=== PATIENT | male | born 1955 | race Caucasian/White ===

== ENCOUNTER 2024-08-11 17:17 | Outpatient (CLI) | payer MEDICARE, SELFPAY ==
--- OUTSIDE RECORDS SUMMARY | 2024-08-11 17:32 | XMS_ITS | Continuity of Care Document ---
Author Organization [facility] Address [address] [place] [address] [place] [address] Phone Care Team Providers Care Vp Revenue Cycle Name Role Phone Ju Monreal Unavailable Unavailable Procedures Procedure Date Visual Field Examination(s) Office/outpatient Visit, Est Office/outpatient Visit, Est Eye Exam Established Pt Optic Nerve Topography Optic Nerve Topography Eye Exam & Treatment Refraction Eye Exam & Treatment Refraction Advance Directives Directive Yes / No Effective Date File Name No Information Encounters Encounter Description Practice Location Reason(s) For Visit Diagnoses Date Provider Providers Copied on Encounter [facility], [address] [place], [place] [address], [place], [place], [id number], tel:[phone] [facility] No Information [phone] 0 Jocelin Vázquez [facility] [address], [place], [address], [place]. tel:[phone] Referring Provider: Kath[facility] Mcwilliams [facility] [address], [place], [address]. tel:[phone] Office/outpat ient Visit, Est [facility], [address] [place] [address] [address], [place], [place], [id number], tel:[phone] [facility] No Information 0-201 0 Jocelin Marshall [address] [facility] [address], [place], [place], [facility], [place]. tel:[phone] Office/outpat ient Visit, Est [facility], [address] [place] [address] [address], [place], [place], [id number], [place] [phone] [facility] No Information 0 Jocelin Marshall [address] [facility] , [address], [place], [place], [facility], . tel:[phone] [facility], [address] [place] [address] [address], [place], [place], [id number], [place] [phone] [facility] [place] No Information 0 9 Jocelin Marshall [address] [facility] , [address], [place], [place], [facility], . tel:[phone] [facility], [address] [place] [address] [address], [place], [place], [id number], [place] tel:[phone] [facility] No Information 9 Jocelin Marshall [address] [facility] , [address], [place], [place], [facility], . tel:[phone] Referring Provider: [facility] [address], [place], [place], [facility]. tel:[phone] [facility], [address] [place] [address] [address], [place], [place], [id number], [place] tel:[phone] SEC [facility] No Information 1 8 Jocelin Marshall [address] [facility] , [address], [place], [place], [facility], [place]. tel:[phone] [facility], [address] [place] [address] [address], [place], [place], [address], [place] tel:[phone] [facility] No Information [address] Travis. [address], [address], [place], [place], [address], [place]. tel:[phone] Family History Family Member Type Diagnosis Age At Onset No Information Payers Payer name Insurance type Covered constitution party ID Authoriza tion(s) No Information Social History Type Description Quantity Date Captured Comments Sex Male Smoking Status No Information Chief Complaint And Reason For Visit No Information Reason For Referral Reason For Referral No Information History Of Present Illness Encounter Date Complaint History Of Prese nt Illness No Information Functional Status Date Functional Assessmen t No Information Instructions Date Instruction Additional Infor mation No Information Assessments Type Assessment Date No Information Patient Care Teams Name Effective Dates (start - stop) Status Members No Information
--- OUTSIDE RECORDS SUMMARY | 2024-08-11 17:32 | XMS_ITS | Data Portability ---
Author Organization [employer], Main Office Address [address] [place] [address] Assessment No assessment recorded. Plan of Treatment Reminders Order Date Submit Date Provider Last Modified By Organization Details Last Modified Time Details Appointments None recorded. Lab HbA1c (hemoglobi n A1c), blood 2024 025 [email or web address] Yag[facility]art [facility], [address], [address], [place], [address], 5 09:27:58 PSA, serum or plasma [email or web address] [employer] [facility], [address], [place], [address], 5 09:27:58 urinalysis , complete [email or web address] [employer] [facility], [address], [place], [address], 5 09:27:58 CBC w/ auto diff [email or web address] [employer] [facility], [address], [place], [address], 5 09:27:58 lipid panel, serum [address] [employer] [facility], [address], [place], [address], 5 18:10:44 CMP, serum or plasma 2024 025 [email or web address] [facility]ag[facility]art [facility], [address], [facility], [place], [address], 5 09:27:58 magnesium, serum or plasma 2023 024 [email or web address] Not available 4 08:36:56 CMP, serum or plasma 2023 024 KAYCE Not available 4 15:22:30 ferritin, serum or plasma 2023 024 [email or web address] Not available 4 08:36:56 glycohemog lobin, total, blood 2023 024 KAYCE Not available 4 23:39:21 CMP, serum or plasma 2023 024 KAYCE Not available 4 20:44:30 PSA, serum or plasma 2023 024 KAYCE Not available 4 23:42:47 CBC w/ auto diff 2023 024 KAYCE Not available 4 20:21:51 lipid panel, serum 2023 024 KAYCE Not available 4 20:44:35 Referral None recorded. Procedures None recorded. Surgeries None recorded. Imaging XR, knee, 3 view 2024 025 [email or web address] [facility], [address], [place], [address], 5 14:08:21 Medication Orders None recorded. Patient TargetsNo targets recorded. Patient Instructions Encounter Date Encounter Id Patient Instructions Last Modified By Organization Details Last Modified Time 07/17/2023 [id number] dementia rating scale-2* Not available 07/17/2023 14:48:39 alcohol misuse* Not available 07/17/2023 14:48:39 depression screening* Not available 07/17/2023 14:48:39 multi-dimensiona l health assessment questionnaire* Not available 07/17/2023 14:48:39 Personalized [facility] Plan and Screening Recommendations Advance Directives - Do you have one? No Advance Directives - Do we have your advance directive on file in your health record? Primary Prevention/Interven tion (prevents or decreases the chance of common diseases from occurring) Smoking Risk: Non Smoker Alcohol Misuse Screening: Negative Weight: Appropriate Physical activity: Need more exercise/physical activity Nutrition: Average Refer to attached handout Heart-Healthy Diet: After Your Visit Refer to attached handout DASH Diet: After Your Visit Recommend consultation with a bicycle messenger Eat heart healthy diet Fall Risk (screened today): Low Vaccines Pneumococcal: No further needed Influenza: Your next one in the fall of this year Chronic Disease Risks Stroke: Low Risk I have no recommendations Heart Attack: Low risk I have no recommendations Clogging of the Arteries: Low risk I have no recommendations Diabetes: Low Risk I have no recommendations Secondary Prevention/Interven tion (detects treatable diseases before they may cause symptoms, disability, or ) Prostate Cancer Screening: Your next PSA in: No PSA screening necessary recommend ed Colon Cancer Screening: Colonoscopy In: Ordered Recomme nded Recommended today, but you have declined No screening necessary due 2025 Date Screening Last Performed: ___2015___ Eye Disease Screening: Ordered Recommended today Recommended today, but you have declined No Eye exam necessary Your next exam in: goes yearly Dementia Risk: Low I have no recommendations Depression Screening: Negative Recommend additional evaluation and/or treatment as noted above Recommend follow appointment to further evaluate Recommend Behavioral Health referral Active diagnosis, Continue current treatment plan I have no recommendations [email or web address] Not available 07/17/2023 15:02:40 07/31/2024 [id number] Will notify ирина ent of xray results. Continue daily exercises as discussed. [email or web address] Not available 07/31/2024 12:27:27 Reason for Referral None Reported. Results Created Date Observation Date Name Description Value Unit Range Abnormal Flag Note LastModifiedBy Organization Detail LastModifiedTime 07/17/19 24 07/17/2023 CBC/C OMPLE TE BLD COUNT W/DIF F white blood cells 8.2 x10'3 /uL 4.2-10 .8 Not Available [facility] (Lab) [address] [place], [address], 07/17/2023 20:21:51 07/17/19 24 07/17/2023 CBC/C OMPLE TE BLD COUNT W/DIF F red blood cells 5.42 x10'6 /uL 4.10-5 .80 Not Available [facility] (Lab) [address] [place], [address], 07/17/2023 20:21:51 07/17/19 24 07/17/2023 CBC/C OMPLE TE BLD COUNT W/DIF F hemoglobin 15.9 g/dL 13.2-1 7.0 Not Available [facility] (Lab) [address] [place], [address], 07/17/2023 20:21:51 07/17/19 24 07/17/2023 CBC/C OMPLE TE BLD COUNT W/DIF F hematocrit 47.9 % 39.3-5 0.0 Not Available [facility] (Lab) [address] [place], [address], 07/17/2023 20:21:51 07/17/19 24 07/17/2023 CBC/C OMPLE TE BLD COUNT W/DIF F mean red cell volume 88.4 fL 80.0-9 7.0 Not Available [facility] (Lab) [address] [place], [address], 07/17/2023 20:21:51 07/17/19 24 07/17/2023 CBC/C OMPLE TE BLD COUNT W/DIF F mean red cell hemoglobin 29.3 pg 27.0-3 3.0 Not Available [facility] (Lab) [address] [place], [address], 07/17/2023 20:21:51 07/17/19 24 07/17/2023 CBC/C OMPLE TE BLD COUNT W/DIF F mean RBC HGB concentratio n 33.2 g/dL 31.0-3 6.0 Not Available [facility] (Lab) [address] [place], [address], 07/17/2023 20:21:51 07/17/19 24 07/17/2023 CBC/C OMPLE TE BLD COUNT W/DIF F red cell distribution width 13.6 % 11.8-1 5.5 Not Available [facility] (Lab) [address] [place], [address], 07/17/2023 20:21:51 07/17/19 24 07/17/2023 CBC/C OMPLE TE BLD COUNT W/DIF F platelets 343 x10'3 /uL 150-40 0 Not Available [facility] (Lab) [address] [place], [address], 07/17/2023 20:21:51 07/17/19 24 07/17/2023 CBC/C OMPLE TE BLD COUNT W/DIF F mean platelet volume 9.2 fL 9.0-12 .4 Not Available [facility] (Lab) [address] [place], [address], 07/17/2023 20:21:51 07/17/19 24 07/17/2023 CBC/C OMPLE TE BLD COUNT W/DIF F neutrophils 56.4 % 39.0-7 2.0 Not Available [facility] (Lab) [address] [place], [address], 07/17/2023 20:21:51 07/17/19 24 07/17/2023 CBC/C OMPLE TE BLD COUNT W/DIF F lymphocytes 25.6 % 16.0-4 7.0 Not Available [facility] (Lab) [address] [place], [address], 07/17/2023 20:21:51 07/17/19 24 07/17/2023 CBC/C OMPLE TE BLD COUNT W/DIF F monocytes 12.0 % 5.0-12 .0 Not Available [facility] (Lab) [address] [place], [address], 07/17/2023 20:21:51 07/17/19 24 07/17/2023 CBC/C OMPLE TE BLD COUNT W/DIF F eosinophils 4.3 % 1.0-7. 0 Not Available [facility] (Lab) [address] [place], [address], 07/17/2023 20:21:51 07/17/19 24 07/17/2023 CBC/C OMPLE TE BLD COUNT W/DIF F basophils 1.2 % 0.0-2. 0 Not Available [facility] (Lab) [address] [place], [address], 07/17/2023 20:21:51 07/17/19 24 07/17/2023 CBC/C OMPLE TE BLD COUNT W/DIF F immature granulocytes 0.5 % 0.00-0 .50 Not Available [facility] (Lab) [address] [place], [address], 07/17/2023 20:21:51 07/17/19 24 07/17/2023 CBC/C OMPLE TE BLD COUNT W/DIF F neutrophils, absolute count 4.63 x10'3 /uL 1.5-8. 0 Not Available [facility] (Lab) [address] [place], [address], 07/17/2023 20:21:51 07/17/19 24 07/17/2023 CBC/C OMPLE TE BLD COUNT W/DIF F lymphocytes, absolute count 2.10 x10'3 /uL 1.07-3 .43 Not Available [facility] (Lab) [address] [place], [address], 07/17/2023 20:21:51 07/17/19 24 07/17/2023 CBC/C OMPLE TE BLD COUNT W/DIF F monocytes, absolute count 0.98 x10'3 /uL 0.29-0 .99 Not Available [facility] (Lab) [address] [place], [address], 07/17/2023 20:21:51 07/17/19 24 07/17/2023 CBC/C OMPLE TE BLD COUNT W/DIF F eosinophils, absolute count 0.35 x10'3 /uL 0.02-0 .53 Not Available [facility] (Lab) [address] [place], [address], 07/17/2023 20:21:51 07/17/19 24 07/17/2023 CBC/C OMPLE TE BLD COUNT W/DIF F basophils, absolute count 0.10 x10'3 /uL 0.01-0 .08 high Not Available [facility] (Lab) [address] [place], [address], 07/17/2023 20:21:51 07/17/19 24 07/17/2023 CBC/C OMPLE TE BLD COUNT W/DIF F immature granulocytes ,absolute 0.04 x10'3 /uL 0.00-0 .05 Not Available [facility] (Lab) [address] [place], [address], 07/17/2023 20:21:51 07/17/19 24 07/17/2023 CBC/C OMPLE TE BLD COUNT W/DIF F nucleated red blood cells 0.0 % -0 Not Available [facility] (Lab) [address] [place], [address], 07/17/2023 20:21:51 07/17/19 24 07/17/2023 CBC/C OMPLE TE BLD COUNT W/DIF F NRBC# 0.00 x10'3 /uL Not Available [facility] (Lab) [address] [place], [address], 07/17/2023 20:21:51 07/17/19 24 07/17/2023 COMPR EHENS BEN METAB OLIC PANEL sodium 137 mmol/ L 137-14 5 Not Available [facility] (Lab) [address] [place], [address], 07/17/2023 20:44:30 07/17/19 24 07/17/2023 COMPR EHENS BEN METAB OLIC PANEL potassium 4.7 mmol/ L 3.5-5. 1 Not Available [facility] (Lab) [address] [place], [address], 07/17/2023 20:44:30 07/17/19 24 07/17/2023 COMPR EHENS BEN METAB OLIC PANEL chloride 104 mmol/ L 98-107 Not Available [facility] (Lab) [address] [place], [address], 07/17/2023 20:44:30 07/17/19 24 07/17/2023 COMPR EHENS BEN METAB OLIC PANEL carbon dioxide 22 mmol/ L 22-30 Not Available [facility] (Lab) [address] [place], [address], 07/17/2023 20:44:30 07/17/19 24 07/17/2023 COMPR EHENS BEN METAB OLIC PANEL anion gap 15.7 mmol/ L 14-22 Not Available [facility] (Lab) [address] [place], [address], 07/17/2023 20:44:30 07/17/19 24 07/17/2023 COMPR EHENS BEN METAB OLIC PANEL glucose 98 mg/dL 70-99 Not Available [facility] (Lab) [address] [place], [address], 07/17/2023 20:44:30 07/17/19 24 07/17/2023 COMPR EHENS BEN METAB OLIC PANEL BUN 21 mg/dL 8-19 high Not Available [facility] (Lab) [address] [place], [address], 07/17/2023 20:44:30 07/17/19 24 07/17/2023 COMPR EHENS BEN METAB OLIC PANEL creatinine 0.84 mg/dL 0.66-1 .25 Not Available [facility] (Lab) [address] [place], [address], 07/17/2023 20:44:30 07/17/19 24 07/17/2023 COMPR EHENS BEN METAB OLIC PANEL GFR >60 Refer ence Range : [place] ge GFR Healt hy Adult : >60 mL/mi n/1.7 3 m2 Chron ic Kidne y Disea se: 15-60 mL/mi n/1.7 3 m2 Kidne y Failu re: <15/m L/min /1.73 m2 www.n iddk. nih.g ov The MDRD study equat ion has not been valid ated in child gus <18 years of age; pregn ant women ; the elder ly >85 years of age; or in some racia l or ethni c subgr oups, such as Hisga nics. Outsi de the valid ated natalia eters , estim ated GFR is less accur ate, requi ring clini ember judgm ent on a case- by-ca se basis . Clini ember inter preta tion for other races and ages must be made by the clini damon. The MDRD study equat ion has not been valid ated for the evalu ation of serum creat inine relat ed to nutri reuben l statu s or medic ation usage . For perso ns <18 years of age, a pedia tric GFR calcu lator is avail able on the [facility] websi te: https ://freddie w.kid aaron.o rg/pr ofess ional s/kdo qi/gf r_cal culat or Not Available [facility] (Lab) [address] [place], [address], 07/17/2023 20:44:30 07/17/19 24 07/17/2023 COMPR EHENS BEN METAB OLIC PANEL alkaline phosphatase 66 U/L 38-126 Not Available [facility] (Lab) [address] [place], [address], 07/17/2023 20:44:30 07/17/19 24 07/17/2023 COMPR EHENS BEN METAB OLIC PANEL alanine aminotransfe rase 33 U/L 0-50 Not Available [facility] (Lab) [address] [place], [address], 07/17/2023 20:44:30 07/17/19 24 07/17/2023 COMPR EHENS BEN METAB OLIC PANEL aspartate aminotransfe rase 65 U/L 15-46 high Not Available [facility] (Lab) [address] [place], [address], 07/17/2023 20:44:30 07/17/19 24 07/17/2023 COMPR EHENS BEN METAB OLIC PANEL bilirubin, total 0.70 mg/dL 0.20-1 .30 Not Available [facility] (Lab) [address] [place], [address], 07/17/2023 20:44:30 07/17/19 24 07/17/2023 COMPR EHENS BEN METAB OLIC PANEL calcium 9.5 mg/dL 8.4-10 .2 Not Available [facility] (Lab) [address] [place], [address], 07/17/2023 20:44:30 07/17/19 24 07/17/2023 COMPR EHENS BEN METAB OLIC PANEL total protein 7.0 g/dL 6.3-8. 2 Not Available [facility] (Lab) [address] [place], [address], 07/17/2023 20:44:30 07/17/19 24 07/17/2023 COMPR EHENS BEN METAB OLIC PANEL albumin 4.5 g/dL 3.0-4. 4 high Not Available [facility] (Lab) [address] [place], [address], 07/17/2023 20:44:30 07/17/19 24 07/17/2023 COMPR EHENS BEN METAB OLIC PANEL globulin 2.5 g/dL 2.6-4. 2 low Not Available [facility] (Lab) [address] [place], [address], 07/17/2023 20:44:30 07/17/19 24 07/17/2023 COMPR EHENS BEN METAB OLIC PANEL A/G ratio 1.8 ratio 1.0-2. 0 Not Available [facility] (Lab) [address] [place], [address], 07/17/2023 20:44:30 07/17/19 24 07/17/2023 LIPID PANEL cholesterol 113 mg/dL 140-19 9 low NIH AL NSUS RECOM MENDA TION FOR GERHARD STERO L: ADULT CHILD LOW RISK: <200 <170 BORDE RLINE : <200- 239 ----- HIGH RISK: >240 >200 Not Available [facility] (Lab) [address] [place], [address], 07/17/2023 20:44:35 07/17/19 24 07/17/2023 LIPID PANEL triglyceride s 130 mg/dL 0-150 NIH AL NSUS REPOR T RECOM MENDA TION FOR TRIGL YCERI JERROD: ADULT CHILD LOW RISK: <150 ----- BODER LINE: 150-1 99 ----- HIGH RISK: >200 ----- Not Available [facility] (Lab) [address] [place], [address], 07/17/2023 20:44:35 07/17/19 24 07/17/2023 LIPID PANEL HDL cholesterol 42 mg/dL 40- Not Available [facility] (Lab) [address] [place], [address], 07/17/2023 20:44:35 07/17/19 24 07/17/2023 LIPID PANEL LDL cholesterol, calculated 45 mg/dL 0-130 NIH AL NSUS REPOR T RECOM MENDA TIONS FOR LDL: ADULT CHILD LOW RISK <130 <110 (OPTI MAL LDL) <100 ----- BORDE RLINE : 130-1 59 ----- HIGH RISK: >160 >130 A TRIGL YCERI DE RESUL T >400 INVAL IDATE S THE CALCU LATIO N FOR LDL FRACT IONAT ION - THE LDL RESUL T WILL NOT BE REPOR MARSHALL. Not Available [facility] (Lab) [address] [place], [address], 07/17/2023 20:44:35 07/17/19 24 07/17/2023 PSA SCREE N PSA medicare screen 1.62 NG/mL 0.00-4 .00 Not Available [facility] (Lab) [address] [place], [address], 07/17/2023 21:11:11 07/17/19 24 07/17/2023 HEMOG LOBIN A1C HA1C 6.1 % 4.0-6. 0 high Diabe brian Scree imelda Crite margie: <5.7% Consi stent with absen ce of diabe brian 5.7-6 .4% Consi stent with incre ased risk for diabe brian (pred iabet es) >OR=6 .5% Consi stent with diabe brian REFER ENCE: Diabe brian Care 2016, 39(Pryor ppl.1 ):s13 -s22 Not Available [facility] (Lab) [address] [place], [address], 07/17/2023 23:39:21 12/04/19 24 12/04/2023 SARS- COV-2 RNA(C OVID1 9),RT -PCR sars-cov-2 RNA(covid19) ,RT-PCR NEGATI VE This test has been autho rized by the FDA under an Emerg ency Use Autho rizat ion (EUA) for use by autho rized labor atori es. Negat ben resul ts do not precl ude SARS- CoV-2 and shoul d not be used as the sole basis for treat ment or other patie nt manag ement decis ions. Test resul ts shoul d be corre lated with the clini ember yonathano ry, minor martinezcal data, and other data avail able to the clini damon evalu ating the patie nt. Nikolai woodard the Fact Sheet s for healt h care provi ders and patie nts at the [facility] brian: https ://ww w.fda .gov/ media /1363 12/do wnloa d https ://ww w.fda .gov/ media /1363 13/do wnloa d Metho dolog y: Real- Time RT-PC R Not Available [facility] ([facility]) [address] [place], [address], 12/04/2023 15:11:08 Result Notes None recorded. Problems Name Problem SNOMED Code Status Onset Date Resolution Date Notes Provider Name and Address Organization Details Recorded Time Pain in left thumb 51867870396 86014 Completed 202101/17/2022 Not Available [facility] 3 02:52:44 Liver function tests outside referenc e range 265198047 Active 2020 Not Available [facility] 3 22:03:26 Vertigo 726208627 Completed 202101/17/2022 Not Available [facility] 3 02:52:44 Cough 02764824 Completed 202101/17/2022 Not Available [facility] 3 02:52:44 Rhinitis 23060409 Active 2021 Not Available [facility] 3 22:03:26 Hypergly cemia 39781042 Active 2020 watch diet, lose weight Not Available [facility] 3 22:03:26 Erectile dysfunct ion 716809982 Active 2020 no more meds needed Not Available [facility] 3 22:03:26 Eruption 765782838 Active 2022 Not Available [facility] 3 22:03:26 Upper respirat ory infectio n 49215623 Active 2023 Michelle Todd LPN null, [facility] 4 12:48:30 COVID-19 714569333 Active 2023 Michelle Todd LPN null, [facility] 4 16:27:37 Lesion of skin of face 36891517550 6 Active 2023 Camila Wylie NP [address], [address], [place], [address] , [facility] 4 16:05:51 Sinusiti s 38443690 Active 2023 Jennifer Burns MA null, [facility] 4 13:01:53 Cramp in lower limb 184369790 Active 2023 Johnathan Short MD [address], [address], [place], [address] , [facility] 4 14:44:57 Diabetes mellitus 84763068 Active 2024 Jennifer Burns MA null, [facility] 5 12:42:21 Pain of knee region 3382051452 Active 2024 EWELINA Barrera [address], [address], [place], [address] , [facility] 5 12:04:48 Notes:Some problems listed i n Documents: #[id number], #[id number] could not be added to this patient's chart. Please review these documents and add these problems to the patient's chart manually as needed. Problem Notes None recorded. Procedures Surgical History Date Name Laterality Status Provider Name and Address Organization Details Recorded Time Medicare Wellness CPT Code, subsequent completed Alesha Smith RN [facility] 07/17/2023 14:42:24 Imaging Results None recorded. Procedure Notes None recorded. Medical Equipment None Reported. Allergies Allergen ID Allergen Name Allergen Category Reaction Reaction Severity Criticality Documentation Date Start Date Code Code System Note Provider Name and Address Organization Details Recorded Time 5087 Substance with sulfonami de structure and antibacte rial mechanism of action (substanc e) medicatio n rash mild Not available 05/02/2022 00390 8003 SNOMED Not Available [facility] 3 03:06:26 5088 Product containin g penicilli n (product) medicatio n other Not available Not available 05/02/2022 16197 8001 SNOMED skin blist ers Not Available [facility] 3 03:06:26 5089 erythromy millie medicatio n Not available Not available Not available 05/02/2022 4053 RxNorm unsur e of react ion Not Available [facility] 3 03:06:26 5090 cephalexi n medicatio n rash Not available Not available 05/02/2022 2231 RxNorm Not Available [facility] 3 03:06:26 Medications Name Sig Start Date Stop Date Status Note LastModified by Organization Details LastModified Time latanoprost 0.005 % eye drops INSTILL 1 DROP INTO BOTH EYES AT BEDTIME DIRECTED 01/14 completed Not Available Not Available Not Available triamcinolo ne acetonide 0.5 % topical cream apply to affected area up to twice daily 2024 active Not Available Not Available Not Avai lable Viagra 50 mg tablet Take 1 tablet every day by oral route as needed. 08/19 completed Not Available Not Available Not Available meclizine 25 mg tablet Take 1 tablet 3 times a day by oral route as needed. 07/16 completed Not Available Not Available Not Available Analpram-HC 1 %-1 % rectal cream apply bid prn 01/29 completed Not Available Not Available Not Available omeprazole 20 mg capsule,del ayed release Take 1 capsule every day by oral route. active Not Available Not Available No t Available hydrocortis one 2.5 % topical cream APPLY A THIN LAYER TO THE AFFECTED AREA(S) BY TOPICAL ROUTE 2 TIMES PER DAY active Not Available Not Available No t Available methylpredn isolone 4 mg tablets in a dose pack take as directed on the package 09/12 completed Not Available Not Available Not Available naproxen 500 mg tablet Take 1 tablet twice a day by oral route. active Not Available Not Available No t Available tadalafil 20 mg tablet TAKE 1 TABLET BY MOUTH ONCE DAILY NEEDED 2022 active Not Available Not Available Not Avai lable Cialis 10 mg tablet Take 1 tablet every day by oral route as needed. 08/19 completed Not Available Not Available Not Available Fish Oil 2014 active Not Available Not Available Not Avai lable Acidophilus 2014 active Not Available Not Available Not Avai lable multivitami n 10/07 completed Not Available Not Available Not Available Daily Multi-Vitam ins/Iron 01/18 completed Not Available Not Available Not Available peg 3350 240 gram-electr olytes 22.72 gram-6.72 g-5.84 g powdr for soln TAKE DIRECTED BEFORE TEST 01/29 completed Not Available Not Available Not Available Glucos Chond Cplx Advanced 08/19 completed Not Available Not Available Not Available terbinafine 250 mg oral tablet-hydr oxypropyl chitosan 1 % topical kit 07/16 completed Not Available Not Available Not Available glucosamine 750 mg-chondroi tin 600 mg chewable tablet Take 1 tablet every day by oral route. 01/18 completed Not Available Not Available Not Available Probiotic Pearls QD 2017 active Not Available Not Available Not Avai lable Shingrix (PF) 50 mcg/0.5 mL intramuscul ar suspension, kit 08/10 completed Not Available Not Available Not Available Fluzone Quad (PF) 60 mcg (15 mcg x 4)/0.5 mL IM syringe active Not Available Not Available N ot Available Neuriva Original qd 07/16 completed Not Available Not Available Not Available Paxlovid 300 mg (150 mg x 2)-100 mg tablets in a dose pack UUD on the package 07/16 completed Not Available Not Available Not Available Vitals Date Recorded Body height Body mass index (BMI) Body weight Body temperature Heart rate Oxygen saturation Oxygen saturation in Arterial blood by Pulse oximetry Systolic blood pressure Diastolic blood pressure Provider Name and Address Organization Details Last Updated DateTime 5 172.72 cm 28.3 kg/m2 10308.1 8 g 97 [degF] 90 /min 96 % 96 % 144 mm[Hg] 90 mm[Hg] Michelle orellana RobinJaspal [facility] 5 14:00:18 Date Recorded Body height Body mass index (BMI) Body weight Body temperature Heart rate Oxygen saturation Oxygen saturation in Arterial blood by Pulse oximetry Systolic blood pressure Diastolic blood pressure Provider Name and Address Organization Details Last Updated DateTime 4 172.72 cm 26.3 kg/m2 94826.4 8 g 98.4 [degF] 47 /min 97 % 97 % 134 mm[Hg] 80 mm[Hg] Deana Goyal [facility] 4 14:27:37 Date Recorded Body height Body mass index (BMI) Body weight Body temperature Oxygen saturation Oxygen saturation in Arterial blood by Pulse oximetry Heart rate Systolic blood pressure Diastolic blood pressure Provider Name and Address Organization Details Last Updated DateTime 5 172.72 cm 27.4 kg/m2 64117.6 3 g 97.4 [degF] 96 % 96 % 83 /min 152 mm[Hg] 86 mm[Hg] Shweta kraus [facility] 5 11:56:03 Date Recorded Body height Body mass index (BMI) Body weight Heart rate Oxygen saturation Oxygen saturation in Arterial blood by Pulse oximetry Body temperature Systolic blood pressure Diastolic blood pressure Provider Name and Address Organization Details Last Updated DateTime 4 172.72 cm 27.2 kg/m2 75047.0 3 g 66 /min 97 % 97 % 99.4 [degF] 130 mm[Hg] 76 mm[Hg] Lucy Eladio Towi 4 15:42:21 Date Recorded Body height Body mass index (BMI) Body weight Body temperature Heart rate Oxygen saturation Oxygen saturation in Arterial blood by Pulse oximetry Systolic blood pressure Diastolic blood pressure Provider Name and Address Organization Details Last Updated DateTime 4 172.72 cm 28.4 kg/m2 26212.7 7 g 97.5 [degF] 64 /min 97 % 97 % 130 mm[Hg] 72 mm[Hg] Michelle orellana Robin Towi 4 14:29:45 Social History Question Answer Notes LastModified by Organization Details LastModified Time Tobacco Smoking Status Never Smoker Not Available [facility] 05/02/2022 02:41:34 Do You Have An Advance Directive? No Papers Given Previously [email or web address] Information not available 07/17/2023 Are You Blind Or Do You Have Difficulty Seeing? No Glasses MIGRATION.0301 [id number] Information not available 05/02/2022 What Is Your Level Of Caffeine Consumption? Moderate MIGRATION.0301 [id number] Information not available 05/02/2022 How Much Tobacco Do You Chew? None MIGRATION.0301 [id number] Information not available 05/02/2022 In The 14 Days Before Symptom Onset, Have You Had Close Contact With A Laboratory-conf irmed COVID-19 While That Case Was Ill? No MIGRATION.0301 [id number] Information not available 05/02/2022 In The 14 Days Before Symptom Onset, Have You Had Close Contact With A Person Who Is Under Investigation For COVID-19 While That Person Was Ill? No MIGRATION.0301 [id number] Information not available 05/02/2022 Are You Deaf Or Do You Have Serious Difficulty Hearing? No MIGRATION.0301 [id number] Information not available 05/02/2022 What Type Of Diet Are You Following? REGULAR MIGRATION.0301 095570 Information not available 05/02/2022 Which Illicit Or Recreational Drugs Have You Used? None MIGRATION.0301 [id number] Information not available 05/02/2022 Have There Been Any Changes To Your Family Or Social Situation? No MIGRATION.0301 [id number] Information not available 05/02/2022 What Is The Fluoride Status Of Your Home? Fluoridated MIGRATION.0301 793353 Information not available 05/02/2022 Do You Use Insect Repellent Routinely? No [email or web address] Information not available 07/17/2023 Where Do You Live? SingleLevelHouse MIGRATION.0301 586646 Information not available 05/02/2022 Are You Able To Care For Yourself? Yes [email or web address] Information not available 07/17/2023 Are You Blind Or Do Yo Have Difficulty Seeing? No [email or web address] Information not available 07/17/2023 Are You Deaf Or Do You Have Serious Difficulty Hearing? No [email or web address] Information not available 07/17/2023 Live Alone Of With Others? With Others [email or web address] Information not available 07/17/2023 What Was The Date Of Your Most Recent Tobacco Screening? 07/17/2023 Information not available 07/17/2023 Do You Have Any Pets? No [email or web address] Information not available 07/17/2023 What Is Your Relationship Status? Single MIGRATION.0301 [id number] Information not available 05/02/2022 Do You Use Your Seat Belt Or Car Seat Routinely? Yes MIGRATION.0301 [id number] Information not available 05/02/2022 Do You Have Smoke And Carbon Monoxide Detectors In Your Home? Yes MIGRATION.0301 984248 Information not available 05/02/2022 Are You Passively Exposed To Smoke? No [email or web address] Information not available 07/17/2023 Are There Any Smokers In Your House? No [email or web address] Information not available 07/17/2023 How Much Tobacco Do You Smoke? No MIGRATION.0301 911415 Information not available 05/02/2022 Do You Use Sunscreen Routinely? No MIGRATION.0301 645249 Information not available 05/02/2022 Have You Recently Traveled Abroad? No [email or web address] Information not available 07/17/2023 Do You Have Difficulty Walking Or Climbing Stairs? No MIGRATION.0301 036772 Information not available 05/02/2022 Sex: Unknown Functional Status Question Answer Note LastModified by Organizat ion Details LastModified Time What is your level of alcohol consumption? None MIGRATION.139841 2687 Information not available 05/02/2022 Do you or have you ever used smokeless tobacco? Never used smokeless tobacco MIGRATION.169121 5901 Information not available 05/02/2022 Do you have transportation difficulties? No MIGRATION.985442 9592 Information not available 05/02/2022 Are you able to walk? YESWOREST MIGRATION.315512 8452 Information not available 05/02/2022 Do you have difficulty doing errands alone? No MIGRATION.944338 4928 Information not available 05/02/2022 Are you able to care for yourself? Yes MIGRATION.545774 9051 Information not available 05/02/2022 What is your occupation? unemployed MIGRATION.119366 0867 Information not available 05/02/2022 Do you have difficulty dressing or bathing? No MIGRATION.641328 7537 Information not available 05/02/2022 Do you or have you ever used e-cigarettes or vape? Never used electronic cigarettes MIGRATION.820530 7624 Information not available 05/02/2022 What is your exercise level? Occasional [email or web address] Information not available 07/17/2023 Mental Status Question Answer Note LastModified by Organizat ion Details LastModified Time Do you feel stressed (tense, restless, nervous, or anxious, or unable to sleep at night)? [id number] MIGRATION.[id number] 26 Information not available 05/02/2022 Do you have difficulty concentrating, remembering or making decisions? No MIGRATION.81627903 26 Information not available 05/02/2022 Family History Relationship Description Onset Age of this Age Resolved Age Notes LastModified by Organization Details LastModified Time Father Arthritis MIGRATION.715 [id number] Not available 05/02/2022 02:43:20 Mother Cerebrovascu lar accident MIGRATION.905 [id number] Not available 05/02/2022 02:43:20 Mother Diabetes mellitus MIGRATION.837 [id number] Not available 05/02/2022 02:43:20 Medical History No medical history recorded. Immunizations Vaccine Type Date Status Note Provider Nam e and Address Organization Details Recorded Time Influenza, high-dose, trivalent, PF 4 completed Not Available [facility] 01/21/2023 22:03:26 SARS-COV-2 (COVID-19) vaccine, UNSPECIFIED 1 completed Not Available [facility] 01/21/2023 22:03:26 SARS-COV-2 (COVID-19) vaccine, UNSPECIFIED 1 completed Not Available [facility] 01/21/2023 22:03:26 SARS-COV-2 (COVID-19) vaccine, UNSPECIFIED 1 completed Not Available [facility] 01/21/2023 22:03:26 tetanus toxoid, unspecified formulation 6 completed Not Available [facility] 01/21/2023 22:03:26 zoster live 4 completed Not Available [facility] 01/21/2023 22:03:26 zoster, unspecified formulation 0 completed Not Available [facility] 01/21/2023 22:03:26 Influenza, split virus, quadrivalent, preservative 9 completed Not Available [facility] 01/21/2023 22:03:26 zoster recombinant 9 completed Not Available [facility] 01/21/2023 22:03:26 Influenza, high-dose, quadrivalent, PF 2 completed Not Available [facility] 01/21/2023 22:03:26 Influenza, high-dose, quadrivalent, PF 1 completed Not Available [facility] 01/21/2023 22:03:26 Influenza, high-dose, quadrivalent, PF 0 completed Not Available [facility] 01/21/2023 22:03:26 Pneumococcal conjugate PCV 13 0 completed Not Available [facility] 01/21/2023 22:03:26 Influenza, split virus, quadrivalent, PF 7 completed Not Available [facility] 01/21/2023 22:03:26 Influenza, split virus, quadrivalent, preservative 6 completed Not Available [facility] 01/21/2023 22:03:26 pneumococcal polysaccharide PPV23 6 completed Not Available [facility] 01/21/2023 22:03:26 Influenza, split virus, quadrivalent, PF 5 completed Not Available [facility] 01/21/2023 22:03:26 SARS-COV-2 (COVID-19) vaccine, UNSPECIFIED 4 completed Jennifer Burns MA null, [email or web address] 11/20/2023 11:46:03 SARS-COV-2 (COVID-19) vaccine, UNSPECIFIED 5 completed KALYANI Sanchez, [email or web address] 07/14/2024 11:43:22 Influenza, high-dose, quadrivalent, PF 3 completed Johnathan Short MD [address] [place] [address], [address], [address], [email or web address] [facility] 01/16/2023 14:47:10 Influenza, high-dose, trivalent, PF 4 completed Johnathan Short MD [address] [facility], [address], [place], [address], [facility] 01/15/2024 16:17:42 Past Encounters Encounter ID Performer Location Encounter Start Date Encounter Closed Date Diagnosis/Indication Diagnosis SNOMED-CT Code Diagnosis ICD10 Code Diagnosis Note [id number] Johnathan Short MD [facility] [address] [facility] [place] [address] 05/13/2020 00:00:00 05/13/2020 10:36:20 [id number] Johnathan Short MD [facility] Internal Med [facility] [address] [place] [address] 08/10/2020 00:00:00 08/10/2020 15:57:24 [id number] Johnathan Short MD S_[facility] Internal Med [address] [place] [address] 09/12/2020 00:00:00 09/12/2020 15:31:39 [id number] MD OLIVE Rodriguez_[facility] Internal Med [address] [facility] [place] [address] 01/16/2021 00:00:00 01/18/2021 17:30:28 [id number] MD OLIVE Rodriguez_[facility] Internal Med [address] [place] [address] 01/16/2021 00:00:00 01/18/2021 17:27:44 [id number] Johnathan Short MD [facility] [address] [place] [address] 06/13/2021 00:00:00 06/13/2021 14:49:21 [id number] MD SHALINI RodriguezS_[facility] Internal Med [address] [place] [address] 07/17/2021 00:00:00 07/17/2021 14:55:25 [id number] Johnathan Short MD S_[facility] Internal Med [address] [place] [address] 11/08/2021 00:00:00 11/08/2021 12:19:03 [id number] Johnathan Short MD S_[facility] Internal Med [address] [place] [address] 01/17/2022 00:00:00 01/17/2022 16:48:56 [id number] Johnathan Short MD S_[facility] Internal Med [address] [place] [address] 07/18/2022 14:42:22 07/18/2022 15:38:18 Erectile dysfunction 889372317 F52.21 meds help Hyperglycemia 24498470 R 73.9 advised to lose weight and watch diet Liver func tion tests outside reference range 846108736 R94.5 improved Rhinitis 59443108 J00 ot Adult [facility] examination 564250068 Z00.00 colonoscop y 01/17, nl, next in 10 yrsTetanus - 08/12/2015Z naren- 08/25/2013P PV 13- 12/08/2019 PPV 23- 03/10/2015A1 C - 6.0 07/23PSA- 01/2021FLU - 2COV ID Vacc- pfizer- 04/30/2020 , 05/07/2020 , 12/05/2020 Depression screening 171 554167 Z13.31 neg Body mass index 25-29 - overweight 756744940 Z68.26 diet and exercise discussed Screening for malignant neoplasm of prostate 999497707 Z12.5 [id number] Johnathan Short MD S_[facility] Internal Med [address] [facility] [place] [address] 01/16/2023 14:24:22 01/16/2023 14:49:16 Erectile dysfunction 160269079 F52.21 meds help Hyperglycemia 66760090 R 73.9 advised to watch diet Liver func tion tests outside reference range 069114641 R94.5 improved Rhinitis 91989371 J00 ot Adult heal th examination 042444678 Z00.00 colonoscop y 01/17, nl, next in 10 yrsTetanus - 08/12/2015Z naren- 08/25/2013P PV 13- 12/08/2019 PPV 23- 03/10/2015A1 C - 6.0 07/23PSA- 07/18/2022 FLU- 2COV ID Vacc- pfizer- 04/30/2020 , 05/07/2020 , 12/05/2020 Administra tion of influenza vaccine 07911891 Z23 [id number] Johnathan Short MD [facility] Internal Med [address] [facility] [place] [address] 07/17/2023 14:22:23 07/17/2023 14:59:00 Erectile dysfunction 939425937 F52.21 meds help Hyperglycemia 31851827 R 73.9 advised to watch diet, diet discussed Liver func tion tests outside reference range 892266701 R94.5 improved Rhinitis 74350850 J00 otc Adult heal th examination 744610080 Z00.00 Colonoscop y 01/17, nl, next in 10 yrsTetanus - 08/12/2015Z naren- 08/25/2013, 02/04/2019 , 05/03/2019 PPV 13- 12/08/2019 PPV 23- 03/10/2015A1 C - 6.0 07/23PSA- 07/18/2022 FLU- 3COV ID Vacc- pfizer- 04/30/2020 , 05/07/2020 , 12/05/2020 Screening for malignant neoplasm of prostate 773768151 Z12.5 Screening for disorder 185665427 Z13.9 [id number] Johnathan Short MD [facility] Internal [facility] [address] [facility] [place] [address] 10/11/2023 15:31:13 10/11/2023 16:15:34 Lesion of skin of face 1609542156 [address] L98[address] bhatti and he was given appointmen t for november 05 at 115 he agreed to the time.regul ar skin wash and f/u with derm [id number] Johnathan Short MD [facility] Internal Med [address] [facility] [place] [address] 01/15/2024 14:12:26 01/15/2024 14:51:37 Erectile dysfunction 807945794 F52.21 meds help Hyperglycemia 75082081 R 73.9 advised to watch diet, Liver func tion tests outside reference range 642670636 R94.5 improved Rhinitis 02346442 J00 otc Adult [facility] examination 944720641 Z00.00 Colonoscop y 01/17, nl, next in 10 yrsTetanus - 08/12/2015Z naren- 08/25/2013, 02/04/2019 , 05/03/2019 PPV 13- 12/08/2019 PPV - 03/10/2015A1 C - 6.0 07/23PSA- 07/17/2023 FLU- OV ID Vacc- pfizer- 04/30/2020 , 05/07/2020 , 12/05/2020 Administra tion of influenza vaccine 53826717 Z23 Cramp in lower limb 4499 06099 R25.2 try magnesium [id number] Johnathan Short MD [facility] [address] [facility] [place] [address] 07/01/2024 13:53:26 07/01/2024 15:16:53 Erectile dysfunction 961138496 F52.21 meds help Hyperglycemia 69071409 R 73.9 advised to watch diet, Liver func tion tests outside reference range 383255541 R94.5 improved Rhinitis 98137600 J00 ot Adult [facility] examination 131268624 Z00.00 Colonoscop y 01/17, nl, next in 10 yrsTetanus - 08/12/2015Z naren- 08/25/2013, 02/04/2019 , 05/03/2019 PPV 13- 12/08/2019 PPV - 03/10/2015A1 C - 6.0 07/23PSA- 07/17/2023 FLU- 01/15/24CO VID Vacc- pfizer- 04/30/2020 , 05/07/2020 , 12/05/2020 , 11/12/23 Screening for malignant neoplasm of prostate 061688101 Z12.5 History of calculus of kidney 248706588 Z87.111 [id number] Johnathan Short MD [facility] Internal Med [address] [place] [address] 07/31/2024 11:49:17 07/31/2024 14:08:21 Pain of knee region 0882063712 M25.561 Continue to wear brace, use ice/elevat ion, take tylenol/Ib uprofen for pain at this time. Health Concerns Section Related Observation LastModified by Organization Detai ls LastModified Time None Recorded Concern Status LastModified by Organization Details LastModified Time None Recorded Advance Directives Directive N: papers given previously Payers Encounter Date Sequence Insurance Name Policy Number Policy Herrmann Covered Member ID Herrmann Member ID Guarantor Name 07/17/2023 1 [facility] (MEDICARE REPLACEMENT/A DVANTAGE - HMO) [id number] Mikael Morgan [id number] Mikael Morgan 10/11/2023 1 [facility] (MEDICARE REPLACEMENT/A DVANTAGE - HMO) [id number] Mikael Morgan [id number] Mikael Morgan 01/15/2024 1 [facility] (MEDICARE REPLACEMENT/A DVANTAGE - HMO) [id number] Mikael Morgan [id number] Mikael Morgan 07/01/2024 1 [facility] (MEDICARE REPLACEMENT/A DVANTAGE - HMO) [id number] Mikael Morgan [id number] Mikael Morgan 07/31/2024 1 [facility] (MEDICARE REPLACEMENT/A DVANTAGE - HMO) [id number] Mikael Morgan [id number] Mikael Morgan Notes Date Note Type Note Provider Name and Address Organization Details Recorded Time 07/17/2023 text/html HE is here for h is 6 month follow up, doing fine, complaint to medsHe is watching diet, doing exercises ED- has taken cialis and it helpsGERD - meds helpMeds- Omeprazole 20mg daily as needed Prediabetes/Hyperglyc emia- under control, watching diet LFT were high, improved Johnathan Short MD [address] [facility] [facility] [address], [place], [address], [facility] 07/17/2023 15:11:27 10/11/2023 text/html He has a changin g skin lesion on his face under his right eye on the lower lid. He has seen derm in the past and wondering if he should see derm again. the lesion is changing and the skin is very rough, he says it did not look like that before. Camila Wylie NP [address], [place], [address], [employer] 10/11/2023 16:06:56 01/15/2024 text/html HE is here for h is 6 month follow up, doing fine, complaint to meds He is watching diet, not doing as much exercisesCramps in his legs, more in his left leg, no injury , no swellingPT IS NOT FASTING ( [facility] ) ED- has taken cialis and it helpsMeds- Tadalafil 20mg as needed GERD - meds helpMeds- Omeprazole 20mg daily as needed Prediabetes/Hyperglyc emia- under control, watching diet LFT were high, improved labs 07/25 Johnathan Short MD [address], [place], [address], [employer] 01/15/2024 16:17:52 07/01/2024 text/html HE is here for h is 6 month follow up, doing fine, complaint to medsPT IS FASTING ( [facility] ) He is watching diet, not doing as much exercises, Lost 1 lb ED- has taken cialis and it helpsMeds- Tadalafil 20mg as needed GERD - meds help, need meds some timesMeds- Omeprazole 20mg daily as needed Prediabetes/Hyperglyc emia- under control, watching diet LFT were high, improved labs 07/25 Renal stone in 2020 Johnathan Short MD [address], [place], [address], [employer] 07/01/2024 14:18:07 07/31/2024 text/html Knee PainReporte d [facility] Quality:aching; gnawing; dull Severity:mild; moderate Duration:months; Started in July Timing:insideous; gradual Context:lifting; twisting; 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 He has not taken tylenol/ibuprofen EWELINA Barrera [address] [facility] [facility] [address], [place], [address], [place] [facility] 07/31/2024 12:31:31
== END 2024-08-11 17:18 | disposition home or self-care (01) ==
PROVIDERS: PCP Internal Medicine
DX: M25.561 Pain in right knee (principal)
CPT/HCPCS: 73562